=== PATIENT | female | born 1955 | race Caucasian/White ===

== ENCOUNTER → 2017-06-29 | Outpatient (CLI) | payer BC ==
[2017-06-29 10:12] LABS: Basophils # (A) 0.1 k/uL (0-0.2); Basophils % (A) 1 %; CH 34.2; CHCM 34.2; Eosinophils # (A) 0.1 k/uL (0-0.7); Eosinophils % (A) 1 %; HCT 46.2 % (34.0-46.0); HDW 2.51; HGB 15.7 gm/dL (11.4-16.0); Luc # (Auto) 0.16; Luc % (Auto) 2; Lymphocytes # (A) 1.7 k/uL (1.0-4.8); Lymphocytes % (A) 22 %; MCH 34.2 pg (25.0-35.0); MCV 100.6 fL (80.0-100.0); Monocytes # (A) 0.4 k/uL (0-1.0); Monocytes % (A) 5 %; Neutrophils # (A) 5.4 k/uL (1.3-7.7); Neutrophils % (A) 69 %; RDW 13.1 % (11.5-15.5); WBC 7.9 k/uL (3.8-10.6); WBC (Perox) 8.19
[2017-06-29 10:20] LABS: ALT 17 U/L (9-52); AST 17 U/L (14-36); Anion Gap 10 mmol/L; Blood Urea Nitrogen 15 mg/dL (7-17); Calcium 9.4 mg/dL (8.4-10.2); Carbon Dioxide 25 mmol/L (22-30); Chloride 105 mmol/L (98-107); Glucose 84 mg/dL (74-99); Non-African American GFR(MDRD) >60 (>60 ml/min/1.73 sqM); Potassium 4.5 mmol/L (3.5-5.1); Sodium 140 mmol/L (137-145)
== END | disposition home or self-care (01) ==
LOC: LABWHC1 09:38
PROVIDERS: ATTEND Nurse Practitioner Family
DX: L40.0 Psoriasis vulgaris (principal)
CPT/HCPCS: 36415; 80048; 84450; 84460; 85025

== ENCOUNTER → 2018-03-15 | Outpatient (CLI) | payer BC ==
--- NOTE | 2018-03-16 11:20 | BD ---
EXAMINATION TYPE: Axial Bone Density DATE OF EXAM: 03/15/2018 COMPARISON: NONE CLINICAL HISTORY: Osteoporosis screening Height: 63 inches Weight: 195 FRAX RISK QUESTIONS: Alcohol (3 or more units per day): no Family History (Parent hip fracture): no Glucocorticoids (More than 3mos): cream for psoriasis (Ex: prednisone, prednisolone, methylprednisolone, dexamethasone, and hydrocortisone). History of Fracture in Adulthood: clavicle Secondary Osteoporosis: 1. Type 1 Diabetes: no 2. Hyperthyroidism: no 3. Menopause before 45: no 4. Malnutrition: no 5. Chronic liver disease: no Rheumatoid Arthritis: no Current Tobacco Use: no RISK FACTORS HISTORY OF: Family History of Osteoporosis: no Active: yes Diet low in dairy products/other sources of calcium: no Postmenopausal woman: yes Take estrogen and/or progesterone medications: no Lost more than 2 inches in height since high school: no Frequent falls: no Poor Health: no Hyperparathyroidism: no Adrenal Insufficiency: no MEDICATIONS: Prednisone or other steroids: yes topical, for psoriasis How Long: about 5 years Thyroid Medications: no Osteoporosis Medications: no Additional Medications: oral diabetic meds, blood pressure meds, cholesterol meds Additional History: type II diabetic; arthritis EXAM MEASUREMENTS: Bone mineral densitometry was performed using the [employer] System. Bone mineral density as measured about the Lumbar spine is: ----- L1-L4(G/cm2): 1.339 T Score Values are as follows: ----- L2: 1.3 ----- L3: 1.7 ----- L4: 1.4 ----- L1-L4: 1.3 Bone mineral density not previously done at this facility; previously done at office of physician Bone mineral density about the R hip (g/cm2): 0.768 Bone mineral density about the L hip (g/cm2): 0.795 T Score values are as follows: -----R Neck: -1.9 -----L Neck: -1.7 -----R Total: -0.9 -----L Total: -0.6 Bone mineral density not previously done at this facility; previously done at office of physician IMPRESSION: Osteopenia (T Score between -2.5 and -1). There is slightly increased risk of fracture and the patient may be considered for treatment. Re-Screen 2-5 years. NOTE: T-SCORE=SD OF THE YOUNG ADULT MEAN.
--- NOTE | 2018-03-17 08:51 | MM ---
Reason for exam: screening (asymptomatic). Last mammogram was performed 1 year and 6 months ago. History: Patient is postmenopausal. Family history of breast cancer in maternal aunt. Physical Findings: A clinical breast exam by your physician is recommended on an annual basis and results should be correlated with mammographic findings. MG 3D Screening Mammo W/Cad Bilateral CC and MLO view(s) were taken. Prior study comparison: September 16, 2016, bilateral MG screening mammo w CAD. August 27, 2014, bilateral MG screening mammo w CAD. There are scattered fibroglandular densities. ASSESSMENT: Benign, BI-RAD 2 RECOMMENDATION: Routine screening mammogram of both breasts in 1 year.
== END | disposition home or self-care (01) ==
LOC: RADMAMWWP 08:50
PROVIDERS: ATTEND Obstetrics & Gynecology
DX: Z12.31 Encounter for screening mammogram for malignant neoplasm of breast (principal); Z80.3 Family history of malignant neoplasm of breast; M85.80 Other specified disorders of bone density and structure, unspecified site
CPT/HCPCS: 77063; 77067; 77080

== ENCOUNTER → 2018-06-22 | Outpatient (CLI) | payer BC ==
[2018-06-22 10:06] LABS: HCT 44.6 % (34.0-46.0); HGB 14.7 gm/dL (11.4-16.0); MCV 99.8 fL (80.0-100.0); RBC 4.47 m/uL (3.80-5.40); WBC 6.7 k/uL (3.8-10.6)
[2018-06-22 10:07] LABS: Basophils # (A) 0.1 k/uL (0-0.2); Basophils % (A) 1 %; Eosinophils # (A) 0.1 k/uL (0-0.7); Eosinophils % (A) 2 %; Lymphocytes # (A) 1.5 k/uL (1.0-4.8); Lymphocytes % (A) 22 %; MCH 32.9 pg (25.0-35.0); MCHC 32.9 g/dL (31.0-37.0); Mean Platelet Volume 8.3; Monocytes # (A) 0.3 k/uL (0-1.0); Monocytes % (A) 5 %; Neutrophils # (A) 4.6 k/uL (1.3-7.7); Neutrophils % (A) 68 %; Platelet Count 224 k/uL (150-450); RDW 13.6 % (11.5-15.5)
[2018-06-22 10:23] LABS: ALT 22 U/L (9-52); AST 22 U/L (14-36); Anion Gap 7 mmol/L; Blood Urea Nitrogen 22 mg/dL (7-17); Carbon Dioxide 26 mmol/L (22-30); Chloride 104 mmol/L (98-107); Potassium 4.7 mmol/L (3.5-5.1); Sodium 137 mmol/L (137-145)
[2018-06-22 19:50] LABS: Hemoglobin A1C 9.1 % (4.0-6.0)
== END | disposition home or self-care (01) ==
LOC: LABWHC1 09:10
PROVIDERS: ATTEND Nurse Practitioner Family
DX: L40.0 Psoriasis vulgaris (principal); E11.9 Type 2 diabetes mellitus without complications
CPT/HCPCS: 36415; 80051; 82565; 83036; 84450; 84460; 84520; 85025

== ENCOUNTER → 2018-12-19 | Outpatient (CLI) | payer BC ==
[2018-12-19 21:15] LABS: Hemoglobin A1C 11.1 % (4.0-6.0)
== END | disposition home or self-care (01) ==
LOC: LABWHC1 11:14
PROVIDERS: ATTEND Internal Medicine
DX: E11.9 Type 2 diabetes mellitus without complications (principal)
CPT/HCPCS: 36415; 83036

== ENCOUNTER → 2020-02-21 | Outpatient (CLI) | payer MEDICARE ==
[2020-02-21 09:42] LABS: Basophils # (A) 0.1 k/uL (0-0.2); Basophils % (A) 1 %; Eosinophils # (A) 0.1 k/uL (0-0.7); Eosinophils % (A) 2 %; HCT 46.4 % (34.0-46.0); HGB 14.8 gm/dL (11.4-16.0); Lymphocytes # (A) 1.5 k/uL (1.0-4.8); Lymphocytes % (A) 26 %; MCH 33.7 pg (25.0-35.0); MCV 105.4 fL (80.0-100.0); Macrocytosis Slight; Monocytes # (A) 0.3 k/uL (0-1.0); Monocytes % (A) 6 %; Neutrophils # (A) 3.7 k/uL (1.3-7.7); Neutrophils % (A) 64 %; Platelet Count 196 k/uL (150-450); RDW 12.6 % (11.5-15.5); WBC 5.8 k/uL (3.8-10.6)
[2020-02-21 17:13] LABS: African American GFR (CKD) 104.6 (60.0-200.0); Albumin/Globulin Ratio 1.82 (1.60-3.17); Anion Gap 7.2 mmol/L (4.00-12.00); Calcium 9.3 mg/dL (8.7-10.3); Carbon Dioxide 30.8 mmol/L (21.6-31.8); Chol/HDL Ratio 4.78; Globulin 2.2 g/dL (1.6-3.3); LDL Cholesterol,Calculated 119.4 mg/dL (0.0-131.0); Non-African American GFR(CKD) 90.3 (60.0-200.0); Potassium 4.7 mmol/L (3.5-5.5); Total Bilirubin 0.3 mg/dL (0.2-1.2); Total Protein 6.2 g/dL (6.2-8.2); VLDL Calculation 69.6 mg/dL (5.00-40.00)
[2020-02-21 17:52] LABS: Hepatitis B Surface AB- Quant 3.5 mIU/mL; Hepatitis B Surface Antibody Non-Reactive (Non-Reactive); Hepatitis C IgG Antibody Non-Reactive (Non-Reactive)
[2020-02-21 18:50] LABS: Hemoglobin A1C 7.1 % (4.0-6.0)
== END | disposition home or self-care (01) ==
LOC: LABWHC1 09:14
PROVIDERS: ATTEND Nurse Practitioner Family
DX: E11.9 Type 2 diabetes mellitus without complications (principal); E78.5 Hyperlipidemia, unspecified; L40.0 Psoriasis vulgaris
CPT/HCPCS: 36415; 80053; 80061; 83036; 85025; 86480; 86706; 86803

== ENCOUNTER → 2020-03-25 | Outpatient (CLI) | payer MEDICARE ==
[2020-03-25 14:45] VITALS: BP 131/70; PULSE 75; RESP 20; TEMP 98.2
--- NOTE | 2020-03-25 15:50 | P.HPOB ---
History of Present Illness H&P Date: 03/25/20 Chief Complaint: The patient is here for her routine gynecologic exam and ma mmogram. This is a 64-year-old with an LMP of 2003. The patient is here to establish with this office. She states it is been about 1-1/2 years since she her last pelvic exam. She is complaining of some vulvar pruritus. She wonders if she has a yeast infection. She denies any vaginal discharge. She has used a clotrimazole with betamethasone cream as needed in the past. She is otherwise without complaints and denies any postmenopausal bleeding. Review of Systems She has gained about 10 pounds over the last year.. She denies respiratory, cardiac and G.I. problems. She denies maltreatment or problems with falling. : she denies any significant problems with urinary leakage, but occasionally has to get to the bathroom right away. This has improved with oxybutynin. Past Medical History Past Medical History: Diabetes Mellitus, Neurologic Disorder, Skin Disorder Additional Past Medical History / Comment(s): Type 2 diabetes, psoriasis, tremors(possibly Parkinsons), and overactive bladder. 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 History of Any Multi-Drug Resistant Organisms: None Reported Past Surgical History: Adenoidectomy, Appendectomy, Cholecystectomy, Orthopedic Surgery, Tonsillectomy Additional Past Surgical History / Comment(s): Carpal tunnel surgery. Colonoscopy 2013(next after 10yr). 3 vaginal deliveries. Past Psychological History: Anxiety, Depression Smoking Status: Never smoker Past Alcohol Use History: Rare Additional Past Alcohol Use History / Comment(s): One per month. Past Drug Use History: None Reported Additional History: She has been since 1973 and is retired. - Past Family History Mother Family Medical History: Diabetes Mellitus Additional Family Medical History / Comment(s): Maternal aunt had breast cancer. Father Family Medical History: Cancer Additional Family Medical History / Comment(s): Lymphoma Medications and Allergies Home Medications Medication Instructions Recorded Confirmed Type Carbidopa 25 mg PO TID 03/25/20 03/25/20 History Clotrimazole/Betameth Cream 1 applic TOPICAL BID 03/25/20 03/25/20 History [Lotrisone] Dapagliflozin Propanediol [Farxiga] 10 mg PO DAILY 03/25/20 03/25/20 History Folic Acid 0.4 mg PO DAILY 03/25/20 03/25/20 History Liraglutide [Victoza 2-Loco] 1.8 mg SQ DAILY 03/25/20 03/25/20 History Oxybutynin Chloride [Oxybutynin 10 mg PO BID 03/25/20 03/25/20 History Chloride ER] Pioglitazone [Actos] 30 mg PO DAILY 03/25/20 03/25/20 History Primidone [Mysoline] 125 mg PO BID 03/25/20 03/25/20 History Propranolol [Inderal] 10 mg PO BID 03/25/20 03/25/20 History glipiZIDE [Glucotrol] 20 mg PO AC-BID 03/25/20 03/25/20 History Allergies Allergy/AdvReac Type Severity Reaction Status Date / Time amoxicillin Allergy Rash/Hives Unverified 03/25/20 14:45 Exam Vital Signs Temp Pulse Resp BP Pulse Ox 03/25/20 14:41 98.2 F 75 20 131/70 99 Intake and Output 03/25/20 03/25/20 03/25/20 06:59 14:59 22:59 Other: Weight 94.347 kg Height 5 feet 3 inches, weight 208 pounds, BMI 36.8. This is a well-developed well-nourished white female who is alert and oriented times 3 in no acute distress. HEENT: Within normal limits. NECK: Supple without mass or thyromegaly. CHEST AND LUNGS: Clear to auscultation. HEART: Regular rate and rhythm. BREASTS: Are without mass or discharge. AXILLARY EXAM: Negative for adenopathy. BACK: Negative for CVA tenderness. ABDOMEN: Soft, nontender, without palpable masses. PELVIC EXAM: external genitalia with mild atrophy and mild generalized erythem. and no focal lesions. Cervix and vagina appear normal with mild atrophy. There is no unusual discharge. There is no evidence of prolapse. The uterus is midposition, nongravid size and nontender. There are no palpable adnexal masses or tenderness. RECTAL EXAM: Rectovaginal exam is negative for mass or tenderness and is negative for occult blood. EXTREMITIES: Nontender. IMPRESSION: 1. 64-year-old menopausal female with intermittent vulvar pruritus and current vulvitis. No vaginal evidence of Christa vaginitis. 2. history of osteopenia. PLAN: 1. Pap smear was performed. Currently I have no record of her previous Pap smears. We will obtain the last 10 years of Pap smears from Dr. Gillespie's office. She has signed a records release for this. 2. Self breast awareness was discussed with the patient. 3. Screening mammogram will be done today. 4. Kenalog 0.1% cream twice a day when necessary for vulvar pruritus. The electronic prescription will be sent to [facility] pharmacy on . 5. Affirm testing was obtained from the vagina for Christa, BV, and trichomonas testing. 6.Osteoporosis prevention was discussed. I have stressed the importance of adequate calcium, vitamin D and regular exercise. Recommended amounts of calcium and vitamin D were also discussed. Bone density testing was done on 03/15/2018 showing osteopenia. We will plan on repeating bone density testing at her next annual examination. 7. She was advised to return in one year for her annual well woman exam.
--- NOTE | 2020-03-27 08:17 | MM ---
Reason for exam: screening (asymptomatic). Last mammogram was performed 2 years ago. History: Patient is postmenopausal. Family history of breast cancer in maternal aunt. Physical Findings: A clinical breast exam by your physician is recommended on an annual basis and results should be correlated with mammographic findings. MG 3D Screening Mammo W/Cad Bilateral CC and MLO view(s) were taken. Prior study comparison: March 15, 2018, bilateral MG 3d screening mammo w/cad. September 16, 2016, bilateral MG screening mammo w CAD. The breast tissue is heterogeneously dense. This may lower the sensitivity of mammography. No significant changes when compared with prior studies. ASSESSMENT: Benign, BI-RAD 2 RECOMMENDATION: Routine screening mammogram of both breasts in 1 year.
--- NOTE | 2020-03-27 15:31 | P.PN ---
Progress Note - Text Progress Note Date: 03/27/20 I have called the patient to notify her of the Affirm testing which was negative for nicolasa, gardnarella and trichomonas. She is to use the Kenalog cream as directed.
--- NOTE | 2020-04-08 11:35 | P.PN ---
Progress Note - Text Progress Note Date: 04/08/20 OUTPATIENT FOLLOW-UP NOTE TEST(S)/RESULTS: Test results from 03/25/2020 include negative Pap smear and benign mammogram. METHOD OF NOTIFICATION: The patient was notified by phone. PATIENT COMMENTS: The patient is happy to hear these results. DIAGNOSIS: Negative Pap smear and benign mammogram. DISCUSSION: I have obtained records from [facility] regarding her previous Pap smears. Records were obtained showing negative Pap smears every 1- 2 years between 2008 and 2017 and all were negative. Her last Pap smear on 02/20/2018 was also negative with negative high-risk HPV testing. PLAN: Since she is considered low risk for cervical problems and greater than 65, we will discontinue Pap smears. The patient was advised to return in 1-2 years for her well woman examination.
== END | disposition home or self-care (01) ==
LOC: WWCWWP 14:34
PROVIDERS: ATTEND Obstetrics & Gynecology
DX: Z12.31 Encounter for screening mammogram for malignant neoplasm of breast (principal)
CPT/HCPCS: 77063; 77067

== ENCOUNTER → 2020-10-06 | Outpatient (CLI) | payer MEDICARE ==
[2020-10-06 11:50] LABS: Basophils # (A) 0.1 k/uL (0-0.2); Basophils % (A) 1 %; Eosinophils # (A) 0.1 k/uL (0-0.7); Eosinophils % (A) 2 %; HCT 47.2 % (34.0-46.0); HGB 15.5 gm/dL (11.4-16.0); Lymphocytes # (A) 1.4 k/uL (1.0-4.8); Lymphocytes % (A) 20 %; MCH 33.3 pg (25.0-35.0); MCHC 32.7 g/dL (31.0-37.0); MCV 101.7 fL (80.0-100.0); Mean Platelet Volume 9.2; Monocytes # (A) 0.4 k/uL (0-1.0); Monocytes % (A) 6 %; Neutrophils # (A) 4.6 k/uL (1.3-7.7); Neutrophils % (A) 69 %; Platelet Count 204 k/uL (150-450); RBC 4.64 m/uL (3.80-5.40); RDW 12.1 % (11.5-15.5); WBC 6.6 k/uL (3.8-10.6)
[2020-10-06 20:59] LABS: ALT <8 U/L (8-44); AST 19 U/L (13-35); Albumin/Globulin Ratio 1.91 (1.60-3.17); Alkaline Phosphatase 65 U/L (41-126); Calcium 9.5 mg/dL (8.7-10.3); Carbon Dioxide 30.1 mmol/L (21.6-31.8); Chloride 103 mmol/L (96-109); Globulin 2.2 g/dL (1.6-3.3); Glucose 168 mg/dL (70-110); Non-African American GFR(CKD) 76.8 (60.0-200.0); Potassium 4.8 mmol/L (3.5-5.5); Sodium 139 mmol/L (135-145); Total Bilirubin 0.5 mg/dL (0.2-1.2); Total Protein 6.4 g/dL (6.2-8.2)
== END | disposition home or self-care (01) ==
LOC: LABWHC1 10:41
PROVIDERS: ATTEND Dermatology
DX: L40.0 Psoriasis vulgaris (principal); L30.4 Erythema intertrigo
CPT/HCPCS: 36415; 80053; 85025

== ENCOUNTER → 2021-09-30 | Outpatient (CLI) | payer MEDICARE ==
[2021-10-01 00:54] LABS: Hepatitis B Surface Antigen Nonreactive (Nonreactive)
== END | disposition home or self-care (01) ==
LOC: LABWHC1 14:28
PROVIDERS: ATTEND Nurse Practitioner Family
DX: K52.9 Noninfective gastroenteritis and colitis, unspecified (principal)
CPT/HCPCS: 36415; 83993; 86704; 87324; 87340

== ENCOUNTER → 2021-10-20 | Outpatient (CLI) | payer MEDICARE ==
[2021-10-20 11:05] VITALS: BP 106/66; PULSE 68; RESP 18; TEMP 97.4
--- NOTE | 2021-10-20 11:36 | P.HPOB ---
History of Present Illness H&P Date: 10/20/21 Chief Complaint: The patient is here for her routine gynecologic exam and ma mmogram. This is a 65-year-old with an LMP of 2003. The patient is without gynecologic complaints. Review of Systems The patient has lost 54 pounds over the last year. She was recently diagnosed with Crohn's disease and had been having significant diarrhea, but this has improved with treatment. Her weight loss was related to the Crohn's disease symptoms. She denies respiratory, cardiac, or G.I. problems. Past Medical History Past Medical History: Diabetes Mellitus, Neurologic Disorder, Skin Disorder Additional Past Medical History / Comment(s): Type 2 diabetes, Crohn's disease, psoriasis, tremors(possibly Parkinsons), and overactive bladder. 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 History of Any Multi-Drug Resistant Organisms: None Reported Past Surgical History: Adenoidectomy, Appendectomy, Cholecystectomy, Orthopedic Surgery, Tonsillectomy Additional Past Surgical History / Comment(s): Carpal tunnel surgery. Colonoscopy with upper endoscopy 2020. 3 vaginal deliveries. Past Psychological History: Anxiety, Depression Smoking Status: Never smoker Past Alcohol Use History: Rare (0-1 month) Past Drug Use History: None Reported Additional History: She has been since 1973 and is retired. She is infrequently sexually active. - Past Family History Mother Family Medical History: Diabetes Mellitus Additional Family Medical History / Comment(s): Maternal aunt had breast cancer. Father Family Medical History: Cancer Additional Family Medical History / Comment(s): Lymphoma Medications and Allergies Home Medications Medication Instructions Recorded Confirmed Type Carbidopa 25 mg PO TID 03/25/20 10/20/21 History Liraglutide [Victoza 2-Loco] 1.8 mg SQ DAILY 03/25/20 10/20/21 History Oxybutynin Chloride [Oxybutynin 10 mg PO BID 03/25/20 10/20/21 History Chloride ER] Pioglitazone [Actos] 30 mg PO DAILY 03/25/20 10/20/21 History Primidone [Mysoline] 125 mg PO BID 03/25/20 10/20/21 History Propranolol [Inderal] 10 mg PO BID 03/25/20 10/20/21 History Triamcinolone 0.1% Cream [Kenalog 1 applicatio TOPICAL BID PRN #80 03/25/20 10/20/21 Rx 0.1% Cream] gram glipiZIDE [Glucotrol] 20 mg PO AC-BID 03/25/20 10/20/21 History Mesalamine 800 mg PO TID 10/20/21 10/20/21 History predniSONE 5 mg PO DAILY 10/20/21 10/20/21 History Allergies Allergy/AdvReac Type Severity Reaction Status Date / Time amoxicillin Allergy Rash/Hives Unverified 10/20/21 10:59 clindamycin Allergy Unknown Unverified 10/20/21 10:59 Exam Vital Signs Temp Pulse Resp BP Pulse Ox 10/20/21 11:02 97.4 F L 68 18 106/66 100 Intake and Output 10/19/21 10/20/21 10/20/21 22:59 06:59 14:59 Other: Weight 69.853 kg Height 5 feet 3 inches, weight 154 pounds, BMI 27.3. This is a well-developed well-nourished white female who is alert and oriented t imes 3 in no acute distress. HEENT: Within normal limits. NECK: Supple without mass or thyromegaly. CHEST AND LUNGS: Clear to auscultation. HEART: Regular rate and rhythm. BREASTS: Are without mass or discharge. AXILLARY EXAM: Negative for adenopathy. BACK: Negative for CVA tenderness. ABDOMEN: Soft, nontender, without palpable masses. PELVIC EXAM: Normal external genitalia with mild to moderate atrophy. Cervix and vagina appear normal with mild to moderate atrophy. There is no unusual discharge. There is no evidence of prolapse. The uterus is midposition, nongravid size and nontender. There are no palpable adnexal masses or tenderness. RECTAL EXAM: Rectovaginal exam is negative for mass or tenderness and is negative for occult blood. EXTREMITIES: Nontender. IMPRESSION: 1. 65-year-old menopausal female with normal gynecologic exam. 2. History of osteopenia. PLAN: 1. Pap smears have been discontinued. 2. Self breast awareness was discussed with the patient. We have also discu ssed symptoms associated with inflammatory breast cancer. 3. Screening mammogram will be done today. 4. Osteoporosis prevention was discussed. I have stressed the importance of adequate calcium, vitamin D and regular exercise. Recommended amounts of calcium and vitamin D were also discussed. I have recommended repeating bone density testing since her last one was done in 2018. The order slip was given to the patient for this. 5. She has completed her Covid vaccination series and has received a booster. 6. The patient was advised to return in 1-2 years for her well woman examination.
--- NOTE | 2021-10-21 09:43 | MM ---
Reason for exam: screening (asymptomatic). Last mammogram was performed 1 year and 7 months ago. History: Patient is postmenopausal. Family history of breast cancer in 2 cousins and breast cancer in maternal aunt. Physical Findings: A clinical breast exam by your physician is recommended on an annual basis and results should be correlated with mammographic findings. MG 3D Screening Mammo W/Cad Bilateral CC and MLO view(s) were taken. Prior study comparison: March 25, 2020, bilateral MG 3d screening mammo w/cad. March 15, 2018, bilateral MG 3d screening mammo w/cad. There are scattered fibroglandular densities. No significant changes when compared with prior studies. ASSESSMENT: Benign, BI-RAD 2 RECOMMENDATION: Routine screening mammogram of both breasts in 1 year.
== END ==
LOC: WWCWWP 10:37
PROVIDERS: ATTEND Obstetrics & Gynecology
DX: Z12.31 Encounter for screening mammogram for malignant neoplasm of breast (principal); E11.9 Type 2 diabetes mellitus without complications; F41.9 Anxiety disorder, unspecified; F32.A Depression, unspecified; Z87.39 Personal history of other diseases of the musculoskeletal system and connective tissue; Z79.84 Long term (current) use of oral hypoglycemic drugs; Z88.1 Allergy status to other antibiotic agents
CPT/HCPCS: 77063; 77067

== ENCOUNTER 2021-12-25 10:42 | Observation (INO) | payer MEDICARE ==
[2021-12-25] MEDS ORDERED: SODIUM CHLORIDE 0.9% 500 ML 500 ML IV STA (11:37)
--- NOTE | 2021-12-25 11:50 | ED ---
General Adult HPI - General Chief complaint: Altered Mental Status Stated complaint: AMS Time Seen by Provider: 12/25/21 11:04 Source: family Mode of arrival: ambulatory Limitations: no limitations - History of Present Illness Initial comments: This 66-year-old female with a past medical history of diabetes mellitus, Crohn's disease and psoriasis presents to the emergency department with altered mental status that began last night at 8:00 PM. Has been in room states they were watching TV around 8:00 last night when patient began having trouble work ing the TV remote, which patient has never had trouble doing in her past. states he suggested they just go to bed and thought she was just tired at the time. Patient was not having any difficulty speaking or walking at this time and has been thought she was just tired. states patient slept through the night and woke up this morning around 5 AM taught her cat out before going back to bed for another 1-2 hours. states since waking up this morning his has had increased weakness, increase tiredness-falling asleep while just sitting in her chair, and difficulty speaking. denies any one-sided weakness. states that patient was recently taken off of her insulin due to her blood sugars dropping, however he states last night was 97 when she took her sugars, he is unsure what time it was that she took it and states he believes it was a couple hours prior to when her altered mental status began. denies any recent falls, patient complaining of any headache, lightheadedness, dizziness, chest pain, shortness of breath, abdominal pain, change in bowel or bladder. denies patient having any strokes in her past. Patient does take glipizide for diabetes. - Related Data Home Medications Medication Instructions Recorded Confirmed Pioglitazone [Actos] 30 mg PO DAILY 03/25/20 12/25/21 Primidone [Mysoline] 75 mg PO BID 03/25/20 12/25/21 Propranolol [Inderal] 10 mg PO BID 03/25/20 12/25/21 glipiZIDE [Glucotrol] 20 mg PO AC-BID 03/25/20 12/25/21 Mesalamine 1,600 mg PO TID 10/20/21 12/25/21 Baclofen [Lioresal] 10 mg PO BID 12/25/21 12/25/21 Carbidopa-Levodopa 25-100 mg 1 tab PO TID 12/25/21 12/25/21 [Sinemet 25-100] Folic Acid 0.4 mg PO SUMOTUWETHSA 12/25/21 12/25/21 Oxybutynin Chloride [Ditropan] 5 mg PO BID 12/25/21 12/25/21 PARoxetine [Paxil] 20 mg PO HS 12/25/21 12/25/21 Risankizumab-Rzaa [Skyrizi] 75 mg SQ Q90D 12/25/21 12/25/21 predniSONE 40 mg PO DAILY 12/25/21 12/25/21 rOPINIRole HCL [Requip] 1 mg PO TID-W/MEALS 12/25/21 12/25/21 Allergies Allergy/AdvReac Type Severity Reaction Status Date / Time amoxicillin Allergy Rash/Hives Verified 12/25/21 13:08 clindamycin Allergy Unknown Verified 12/25/21 13:08 Review of Systems ROS Statement: Those systems with pertinent positive or pertinent negative responses have been documented in the HPI. ROS Other: All systems not noted in ROS Statement are negative. Past Medical History Past Medical History: Diabetes Mellitus, Neurologic Disorder, Skin Disorder Additional Past Medical History / Comment(s): Type 2 diabetes, Crohn's disease, psoriasis, tremors(possibly Parkinsons), and overactive bladder. 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 History of Any Multi-Drug Resistant Organisms: None Reported Past Surgical History: Adenoidectomy, Appendectomy, Cholecystectomy, Orthopedic Surgery, Tonsillectomy Additional Past Surgical History / Comment(s): Carpal tunnel surgery. Colonoscopy with upper endoscopy 2020. 3 vaginal deliveries. Past Psychological History: Anxiety, Depression Smoking Status: Never smoker Past Alcohol Use History: Rare Past Drug Use History: None Reported - Past Family History Mother Family Medical History: Diabetes Mellitus Additional Family Medical History / Comment(s): Maternal aunt had breast cancer. Father Family Medical History: Cancer Additional Family Medical History / Comment(s): Lymphoma General Exam Limitations: no limitations, altered mental status General appearance: alert, other (Physical exam completed to the best my ability, however patient did keep falling asleep and when asked her to speak she would only continuously repeat their cell phone number.) Head exam: Present: atraumatic, normocephalic, normal inspection Eye exam: Present: normal appearance, PERRL, EOMI. Absent: scleral icterus, conjunctival injection, periorbital swelling Pupils: Present: normal accommodation ENT exam: Present: normal exam, normal oropharynx, mucous membranes moist, other (No facial drooping or deviation of tongue) Neck exam: Present: normal inspection. Absent: tenderness, meningismus, lymphadenopathy Respiratory exam: Present: normal lung sounds bilaterally. Absent: respiratory distress, wheezes, rales, rhonchi, stridor, chest wall tenderness Cardiovascular Exam: Present: regular rate, normal rhythm, normal heart sounds. Absent: bradycardia, tachycardia, irregular rhythm, systolic murmur, diastolic murmur, rubs, gallop, clicks GI/Abdominal exam: Present: soft, normal bowel sounds. Absent: distended, tenderness, guarding, rebound, rigid Extremities exam: Present: normal inspection, full ROM, normal capillary refill. Absent: tenderness, pedal edema, joint swelling, calf tenderness Back exam: Present: normal inspection. Absent: CVA tenderness (R), CVA tenderness (L), paraspinal tenderness, vertebral tenderness Neurological exam: Present: alert, CN II-XII intact (Patient unable to perform finger to nose, unable to follow 6 cardinal signs of gaze. Unable to perform rapid alternating movements. When I raise bilateral arms patient does drop in both. When I raise bilateral legs, patient does drop in both follow commands of raising arms/legs), motor sensory deficit (Patient unable to tell me if she feels me touching her cheeks, arms, hands, legs, feet.). Absent: oriented X3 (Patient unable to say her name, where she is at, the date, the color of her shirt. Patient repeatedly stating her phone number) Psychiatric exam: Present: flat affect Skin exam: Present: warm, dry, intact, normal color. Absent: rash Course Vital Signs 12/25/21 12/25/21 12/25/21 10:44 11:53 14:26 Temperature 98.8 F 97.5 F L Pulse Rate 66 66 66 Respiratory 20 16 16 Rate Blood Pressure 106/76 158/73 158/73 O2 Sat by Pulse 98 96 99 Oximetry 12/25/21 16:32 Temperature Pulse Rate 80 Respiratory 18 Rate Blood Pressure 95/60 O2 Sat by Pulse 98 Oximetry - Reevaluation(s) Reevaluation #1: 12/25/21 12:50 Patient is awake and alert, however she is still not responding appropriately to questions. NIH score is difficult to assess due to patient not responding to questions or commands. Patient was awake and alert in bed, however she did not follow any commands I requested. When asked age and month patient stated her cell phone number. Patient was able to squeeze my hands and blink her eyes. Patient was unable to perform 6 cardinal signs of gaze. Patient without any facial palsy or paralysis. When I raised patient's arms up and asked her to keep them in the air patient just got onto the floor, same with bilateral legs. Patient was unable to respond when I asked her about sensory questions if she could feel me touching her bilateral temples, cheeks, shoulders, arms, hands, abdomen, legs, knees, toes. Patient without any slurring of her speech when she repeatedly states her phone number. 12/25/21 13:00 Dextrose given due to glucose being 38. Patient immediately began to be more awake and alert. 12/25/21 13:15 Patient awake alert and oriented 4. Patient able to perform [id number], rapid alternating movements, 6 cardinal signs of gaze. Patient without any arm drift or leg drift. Patient able to push and pull against resistance with bilateral upper and lower extremities. Patient without any dysarthria or difficulty speaking. 12/25/21 13:52 On reevaluation, patient is AAOx4. Patient is neurologically intact. All patient's symptoms are likely from hypoglycemia. I did speak to Kathryn Chang to discuss impression. CT results stated "a small acute or hyperacute infarct can't be excluded by the computed tomography scan." However, he states he puts this on all CT scans when he does not see any acute infarct reading. He did state he did not see any signs or infarct present. NIH score 0 EKG Findings - EKG Comments: EKG Findings:: EKG: Ventricular rate 64. TX interval 129. Bahai 104. QT/QTc 407/417 Medical Decision Making - Medical Decision Making This 66-year-old female presents to the emergency Department with altered mental status that began last night. Patient was diagnosed with Crohn's disease about a year ago and has lost 50 pounds since. Labs did reveal glucose of 38. After dextrose given, patient was AAO4. Computed tomography scan without any acute findings. Chest x-ray with hyperinflation compatible with COPD. Cardiomegaly with pulmonary venous congestion. No evidence for overt failure at this time. I did speak with who agreed to accept patient to their services. Instructed me to place patient on D5. Due to patient's fluctuating glucose levels, patient will be kept in observation for 24 hours for further workup and treatment. I did discuss patient and case throughout the patient stay with my attending, . - Lab Data Result diagrams: 12/25/21 12:10 12/25/21 12:10 Lab Results 12/25/21 12/25/21 12/25/21 Range/Units 12:10 12:10 12:10 WBC 7.8 (3.8-10.6) k/uL RBC 4.38 (3.80-5.40) m/uL Hgb 15.6 (11.4-16.0) gm/dL Hct 46.0 (34.0-46.0) % MCV 105.0 H (80.0-100.0) fL MCH 35.7 H (25.0-35.0) pg MCHC 34.0 (31.0-37.0) g/dL RDW 12.6 (11.5-15.5) % Plt Count 127 L (150-450) k/uL MPV 11.9 Neutrophils % 73 % Lymphocytes % 16 % Monocytes % 8 % Eosinophils % 0 % Basophils % 1 % Neutrophils # 5.7 (1.3-7.7) k/uL Lymphocytes # 1.2 (1.0-4.8) k/uL Monocytes # 0.6 (0-1.0) k/uL Eosinophils # 0.0 (0-0.7) k/uL Basophils # 0.0 (0-0.2) k/uL Manual Slide Review Performed Macrocytosis Slight PT 10.1 (9.0-12.0) sec INR 0.9 (<1.2) APTT 19.4 L (22.0-30.0) sec Sodium 137 (137-145) mmol/L Potassium 4.2 (3.5-5.1) mmol/L Chloride 105 (98-107) mmol/L Carbon Dioxide 29 (22-30) mmol/L Anion Gap 3 mmol/L BUN 26 H (7-17) mg/dL Creatinine 0.67 (0.52-1.04) mg/dL Est GFR (CKD-EPI)AfAm >90 (>60 ml/min/1.73 sqM) Est GFR (CKD-EPI)NonAf >90 (>60 ml/min/1.73 sqM) Glucose 38 L* (74-99) mg/dL POC Glucose (mg/dL) (75-99) mg/dL POC Glu Supervisor Residential ID Calcium 9.3 (8.4-10.2) mg/dL Total Bilirubin 0.4 (0.2-1.3) mg/dL AST 25 (14-36) U/L ALT 7 (4-34) U/L Alkaline Phosphatase 52 (38-126) U/L Ammonia (<30) umol/L Troponin I (0.000-0.034) ng/mL Total Protein 6.9 (6.3-8.2) g/dL Albumin 3.9 (3.5-5.0) g/dL Urine Color Urine Appearance (Clear) Urine pH (5.0-8.0) Ur Specific [place] (1.001-1.035) Urine Protein (Negative) Urine Glucose (UA) (Negative) Urine Ketones (Negative) Urine Blood (Negative) Urine Nitrite (Negative) Urine Bilirubin (Negative) Urine Urobilinogen (<2.0) mg/dL Ur Leukocyte Esterase (Negative) Urine Opiates Screen (NotDetected) Ur Oxycodone Screen (NotDetected) Urine Methadone Screen (NotDetected) Ur Propoxyphene Screen (NotDetected) Ur Barbiturates Screen (NotDetected) U Tricyclic Antidepress (NotDetected) Ur Phencyclidine Scrn (NotDetected) Ur Amphetamines Screen (NotDetected) U Methamphetamines Scrn (NotDetected) U Benzodiazepines Scrn (NotDetected) Urine Cocaine Screen (NotDetected) U Marijuana (THC) Screen (NotDetected) Serum Alcohol <10 mg/dL 12/25/21 12/25/21 12/25/21 Range/Units 12:10 12:10 13:22 WBC (3.8-10.6) k/uL RBC (3.80-5.40) m/uL Hgb (11.4-16.0) gm/dL Hct (34.0-46.0) % MCV (80.0-100.0) fL MCH (25.0-35.0) pg MCHC (31.0-37.0) g/dL RDW (11.5-15.5) % Plt Count (150-450) k/uL MPV Neutrophils % % Lymphocytes % % Monocytes % % Eosinophils % % Basophils % % Neutrophils # (1.3-7.7) k/uL Lymphocytes # (1.0-4.8) k/uL Monocytes # (0-1.0) k/uL Eosinophils # (0-0.7) k/uL Basophils # (0-0.2) k/uL Manual Slide Review Macrocytosis PT (9.0-12.0) sec INR (<1.2) APTT (22.0-30.0) sec Sodium (137-145) mmol/L Potassium (3.5-5.1) mmol/L Chloride (98-107) mmol/L Carbon Dioxide (22-30) mmol/L Anion Gap mmol/L BUN (7-17) mg/dL Creatinine (0.52-1.04) mg/dL Est GFR (CKD-EPI)AfAm (>60 ml/min/1.73 sqM) Est GFR (CKD-EPI)NonAf (>60 ml/min/1.73 sqM) Glucose (74-99) mg/dL POC Glucose (mg/dL) 127 H (75-99) mg/dL POC Glu Supervisor Residential ID Ophelia Blood Calcium (8.4-10.2) mg/dL Total Bilirubin (0.2-1.3) mg/dL AST (14-36) U/L ALT (4-34) U/L Alkaline Phosphatase (38-126) U/L Ammonia <9 (<30) umol/L Troponin I <0.012 (0.000-0.034) ng/mL Total Protein (6.3-8.2) g/dL Albumin (3.5-5.0) g/dL Urine Color Urine Appearance (Clear) Urine pH (5.0-8.0) Ur Specific [place] (1.001-1.035) Urine Protein (Negative) Urine Glucose (UA) (Negative) Urine Ketones (Negative) Urine Blood (Negative) Urine Nitrite (Negative) Urine Bilirubin (Negative) Urine Urobilinogen (<2.0) mg/dL Ur Leukocyte Esterase (Negative) Urine Opiates Screen (NotDetected) Ur Oxycodone Screen (NotDetected) Urine Methadone Screen (NotDetected) Ur Propoxyphene Screen (NotDetected) Ur Barbiturates Screen (NotDetected) U Tricyclic Antidepress (NotDetected) Ur Phencyclidine Scrn (NotDetected) Ur Amphetamines Screen (NotDetected) U Methamphetamines Scrn (NotDetected) U Benzodiazepines Scrn (NotDetected) Urine Cocaine Screen (NotDetected) U Marijuana (THC) Screen (NotDetected) Serum Alcohol mg/dL 12/25/21 12/25/21 12/25/21 Range/Units 14:02 14:25 14:53 WBC (3.8-10.6) k/uL RBC (3.80-5.40) m/uL Hgb (11.4-16.0) gm/dL Hct (34.0-46.0) % MCV (80.0-100.0) fL MCH (25.0-35.0) pg MCHC (31.0-37.0) g/dL RDW (11.5-15.5) % Plt Count (150-450) k/uL MPV Neutrophils % % Lymphocytes % % Monocytes % % Eosinophils % % Basophils % % Neutrophils # (1.3-7.7) k/uL Lymphocytes # (1.0-4.8) k/uL Monocytes # (0-1.0) k/uL Eosinophils # (0-0.7) k/uL Basophils # (0-0.2) k/uL Manual Slide Review Macrocytosis PT (9.0-12.0) sec INR (<1.2) APTT (22.0-30.0) sec Sodium (137-145) mmol/L Potassium (3.5-5.1) mmol/L Chloride (98-107) mmol/L Carbon Dioxide (22-30) mmol/L Anion Gap mmol/L BUN (7-17) mg/dL Creatinine (0.52-1.04) mg/dL Est GFR (CKD-EPI)AfAm (>60 ml/min/1.73 sqM) Est GFR (CKD-EPI)NonAf (>60 ml/min/1.73 sqM) Glucose (74-99) mg/dL POC Glucose (mg/dL) 92 68 L (75-99) mg/dL POC Glu Supervisor Residential ID Huang Bowers Taylor Calcium (8.4-10.2) mg/dL Total Bilirubin (0.2-1.3) mg/dL AST (14-36) U/L ALT (4-34) U/L Alkaline Phosphatase (38-126) U/L Ammonia (<30) umol/L Troponin I (0.000-0.034) ng/mL Total Protein (6.3-8.2) g/dL Albumin (3.5-5.0) g/dL Urine Color Yellow Urine Appearance Clear (Clear) Urine pH 6.5 (5.0-8.0) Ur Specific [place] 1.013 (1.001-1.035) Urine Protein Negative (Negative) Urine Glucose (UA) Trace H (Negative) Urine Ketones Negative (Negative) Urine Blood Negative (Negative) Urine Nitrite Negative (Negative) Urine Bilirubin Negative (Negative) Urine Urobilinogen <2.0 (<2.0) mg/dL Ur Leukocyte Esterase Negative (Negative) Urine Opiates Screen Not Detected (NotDetected) Ur Oxycodone Screen Not Detected (NotDetected) Urine Methadone Screen Not Detected (NotDetected) Ur Propoxyphene Screen Not Detected (NotDetected) Ur Barbiturates Screen Detected H (NotDetected) U Tricyclic Antidepress Not Detected (NotDetected) Ur Phencyclidine Scrn Not Detected (NotDetected) Ur Amphetamines Screen Not Detected (NotDetected) U Methamphetamines Scrn Not Detected (NotDetected) U Benzodiazepines Scrn Not Detected (NotDetected) Urine Cocaine Screen Not Detected (NotDetected) U Marijuana (THC) Screen Not Detected (NotDetected) Serum Alcohol mg/dL Disposition Clinical Impression: Hypoglycemia, Altered mental status Disposition: ADMITTED IP TO THIS [facility] Condition: Serious
[2021-12-25 12:37] LABS: ALT 7 U/L (4-34); AST 25 U/L (14-36); African American GFR (CKD) >90 (>60 ml/min/1.73 sqM); Albumin 3.9 g/dL (3.5-5.0); Alcohol <10 mg/dL; Alkaline Phosphatase 52 U/L (38-126); Anion Gap 3 mmol/L; Blood Urea Nitrogen 26 mg/dL (7-17); Calcium 9.3 mg/dL (8.4-10.2); Carbon Dioxide 29 mmol/L (22-30); Chloride 105 mmol/L (98-107); Non-African American GFR(CKD) >90 (>60 ml/min/1.73 sqM); Potassium 4.2 mmol/L (3.5-5.1); Sodium 137 mmol/L (137-145); Total Bilirubin 0.4 mg/dL (0.2-1.3); Total Protein 6.9 g/dL (6.3-8.2)
[2021-12-25 12:41] LABS: Glucose 38 mg/dL (74-99)
[2021-12-25] MEDS ORDERED: DEXTROSE 50% SYRINGE 50 ML IVP STA (12:55)
[2021-12-25 12:56] LABS: INR 0.9 (<1.2); Prothrombin Time 10.1 sec (9.0-12.0)
--- NOTE | 2021-12-25 12:59 | XR ---
EXAMINATION TYPE: XR chest 2V DATE OF EXAM: 12/25/2021 COMPARISON: NONE HISTORY: Shortness of breath TECHNIQUE: Frontal and lateral views of the chest are obtained. FINDINGS: Scattered senescent parenchymal changes noted. Hyperinflation compatible with COPD. Cardiomegaly with pulmonary venous congestion. No evidence for overt failure at this time. Mediastinal structures are stable and grossly unremarkable. No evidence for hilar prominence. Degenerative changes dorsal spine. IMPRESSION: 1. Cardiomegaly with pulmonary venous congestion. No evidence for overt failure at this time.
[2021-12-25 13:04] LABS: Partial Thromboplastin Time 19.4 sec (22.0-30.0)
[2021-12-25 13:12] LABS: Basophils % (A) 1 %; Eosinophils % (A) 0 %; HGB 15.6 gm/dL (11.4-16.0); Lymphocytes # (A) 1.2 k/uL (1.0-4.8); Lymphocytes % (A) 16 %; MCH 35.7 pg (25.0-35.0); Macrocytosis Slight; Mean Platelet Volume 11.9; Monocytes # (A) 0.6 k/uL (0-1.0); Monocytes % (A) 8 %; Neutrophils # (A) 5.7 k/uL (1.3-7.7); Neutrophils % (A) 73 %; RBC 4.38 m/uL (3.80-5.40); RDW 12.6 % (11.5-15.5); WBC 7.8 k/uL (3.8-10.6)
--- NOTE | 2021-12-25 13:12 | CT ---
EXAMINATION TYPE: CT brain wo con DATE OF EXAM: 12/25/2021 COMPARISON: None available HISTORY: Altered mental status. CT DLP: 1246.4 mGycm Automated exposure control for dose reduction was used. TECHNIQUE: CT scan of the brain is performed without IV contrast administration. FINDINGS: Scattered arterial atherosclerotic calcifications with a calcified plaque at the M1 segment of the le ft MCA. No acute intracranial hemorrhage. No gross acute cortical infarct. No midline shift, herniati on or ventriculomegaly. Unremarkable stahl-white matter differentiation, basal cisterns, sella and CP angles. No gross space-o ccupying lesion, vasogenic edema or mass effect. No gross orbital abnormality. Mucosal thickening of the right axillary sinus with previous sinus surg ishan. Opacified left posterior mastoid air cells. Osteopenia. No aggressive bone lesion. Fused occipit al condyles and C1. IMPRESSION: No acute intracranial abnormality or gross space-occupying lesion by this nonenhanced CT scan. A smal l acute or hyperacute infarct can't be excluded by this CT scan. Incidental findings as described abo ve.
[2021-12-25 13:24] LABS: Glucose,Whole Blood 127 mg/dL (75-99)
[2021-12-25 14:04] LABS: Glucose,Whole Blood 92 mg/dL (75-99)
[2021-12-25 14:23] LABS: Platelet Count 127 k/uL (150-450)
[2021-12-25 14:49] LABS: Appearance,Urine Clear (Clear); Bilirubin,Urine Negative (Negative); Blood,Urine Negative (Negative); Color,Urine Yellow; Glucose,Urine (UA) Trace (Negative); Ketones,Urine Negative (Negative); Leukocyte Esterase,Urine Negative (Negative); Nitrite,Urine Negative (Negative); PH, Urine 6.5 (5.0-8.0); Protein,Urine Negative (Negative); Specific Gravity,Urine 1.013 (1.001-1.035); Urobilinogen,Urine <2.0 mg/dL (<2.0)
[2021-12-25 14:55] LABS: Glucose,Whole Blood 68 mg/dL (75-99)
[2021-12-25] MEDS ORDERED: NALOXONE 0.4 MG/ML 1 ML VIAL IV PRN ×2 (15:23→16:07)
[2021-12-25 15:27] LABS: Glucose,Whole Blood 65 mg/dL (75-99)
[2021-12-25 15:28] LABS: Amphetamine Screen,Urine Not Detected (NotDetected); Barbiturate Screen,Urine Detected (NotDetected); Benzodiazepines Screen,Urine Not Detected (NotDetected); Cocaine Screen,Urine Not Detected (NotDetected); Methadone Screen, Urine Not Detected (NotDetected); Opiate Screen,Urine Not Detected (NotDetected); Oxycodone Screen, Urine Not Detected (NotDetected); Phencyclidine Screen,Urine Not Detected (NotDetected); Tricyclic Antidepressant,Urine Not Detected (NotDetected); Urn Cannabinoid Scrn Not Detected (NotDetected)
[2021-12-25] MEDS ORDERED: DEXTROSE 5%-0.45% NACL 1,000 ML IV SCH ×2 (15:30→16:30)
[2021-12-25 16:06] LABS: Glucose,Whole Blood 70 mg/dL (75-99)
[2021-12-25] MEDS ORDERED: ACETAMINOPHEN TAB 325 MG TAB PO PRN (16:07)
--- NOTE | 2021-12-25 16:32 | P.HPIM ---
History of Present Illness H&P Date: 12/22/21 This 66-year-old female with a past medical history of diabetes mellitus, Crohn's disease and psoriasis presents to the emergency department with altered mental status that began last night at 8:00 PM. Has been in room states they were watching TV around 8:00 last night when patient began having trouble working the TV remote, which patient has never had trouble doing in her past. states he suggested they just go to bed and thought she was just tired at the time. Patient was not having any difficulty speaking or walking at this time and has been thought she was just tired. states patient slept through the night and woke up this morning around 5 AM taught her cat out before going back to bed for another 1-2 hours. states since waking up this morning his has had increased weakness, increase tiredness-falling asleep while just sitting in her chair, and difficulty speaking. denies any one-sided weakness. states that patient was recently taken off of her insulin due to her blood sugars dropping, however he states last night was 97 when she took her sugars, he is unsure what time it was that she took it and states he believes it was a couple hours prior to when her altered mental status began. denies any recent falls, patient complaining of any headache, lightheadedness, dizziness, chest pain, shortness of breath, abdominal pain, change in bowel or bladder. denies patient having any strokes in her past. In the emergency room the patient was found to be hypoglycemic at 38 she received an amp of D50. Repeat blood sugar at 70. Patient stated that she lost 50 pounds over the course of the 3 months. Patient stated that she lost weight due to her Crohn's disease. She just finished her prednisone taper for Crohn's disease. She denies any chest pain or shortness of breath. Patient denied any headache or visual changes patient denies any weakness numbness or tingling. Patient's symptoms improved. She is being admitted for observation to monitor her blood sugar overnight. Review of Systems All 14 review of systems evaluated and all negative except for above. Past Medical History Past Medical History: Diabetes Mellitus, Neurologic Disorder, Skin Disorder Additional Past Medical History / Comment(s): Type 2 diabetes, Crohn's disease, psoriasis, tremors(possibly Parkinsons), and overactive bladder. 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 History of Any Multi-Drug Resistant Organisms: None Reported Past Surgical History: Adenoidectomy, Appendectomy, Cholecystectomy, Orthopedic Surgery, Tonsillectomy Additional Past Surgical History / Comment(s): Carpal tunnel surgery. Colonoscopy with upper endoscopy 2020. 3 vaginal deliveries. Past Psychological History: Anxiety, Depression Smoking Status: Never smoker Past Alcohol Use History: Rare Past Drug Use History: None Reported - Past Family History Mother Family Medical History: Diabetes Mellitus Additional Family Medical History / Comment(s): Maternal aunt had breast cancer. Father Family Medical History: Cancer Additional Family Medical History / Comment(s): Lymphoma Medications and Allergies Home Medications Medication Instructions Recorded Confirmed Type Pioglitazone [Actos] 30 mg PO DAILY 03/25/20 12/25/21 History Primidone [Mysoline] 75 mg PO BID 03/25/20 12/25/21 History Propranolol [Inderal] 10 mg PO BID 03/25/20 12/25/21 History glipiZIDE [Glucotrol] 20 mg PO AC-BID 03/25/20 12/25/21 History Mesalamine 1,600 mg PO TID 10/20/21 12/25/21 History Baclofen [Lioresal] 10 mg PO BID 12/25/21 12/25/21 History Carbidopa-Levodopa 25-100 mg 1 tab PO TID 12/25/21 12/25/21 History [Sinemet 25-100] Folic Acid 0.4 mg PO SUMOTUWETHSA 12/25/21 12/25/21 History Oxybutynin Chloride [Ditropan] 5 mg PO BID 12/25/21 12/25/21 History PARoxetine [Paxil] 20 mg PO HS 12/25/21 12/25/21 History Risankizumab-Rzaa [Skyrizi] 75 mg SQ Q90D 12/25/21 12/25/21 History predniSONE 40 mg PO DAILY 12/25/21 12/25/21 History rOPINIRole HCL [Requip] 1 mg PO TID-W/MEALS 12/25/21 12/25/21 History Allergies Allergy/AdvReac Type Severity Reaction Status Date / Time amoxicillin Allergy Rash/Hives Verified 12/25/21 13:08 clindamycin Allergy Unknown Verified 12/25/21 13:08 Physical Exam Vitals: Vital Signs Temp Pulse Resp BP Pulse Ox 12/25/21 14:26 66 16 158/73 99 12/25/21 11:53 97.5 F L 66 16 158/73 96 12/25/21 10:44 98.8 F 66 20 106/76 98 Intake and Output 12/25/21 12/25/21 12/25/21 06:59 14:59 22:59 Other: Weight 70.307 kg General: non toxic, no distress, appears at stated age Derm: warm, dry Head: atraumatic, normocephalic, symmetric Eyes: EOMI, no lid lag, anicteric sclera Mouth: no lip lesion, mucus membranes moist Cardiovascular: S1S2 reg, no murmur, positive posterior tibial pulse bilateral, Lungs: CTA bilateral, no rhonchi, no rales , no accessory muscle use Abdominal: soft, nontender to palpation, no guarding, no appreciable organomegaly Ext: no gross muscle atrophy, no edema, no contractures Neuro: CN II-XI grossly intact, no focal neuro deficits Psych: Alert, oriented, appropriate affect Results CBC & Chem 7: 12/25/21 12:10 12/25/21 12:10 Labs: Abnormal Lab Results - Last 24 Hours (Table) 12/25/21 12/25/21 12/25/21 Range/Units 12:10 12:10 12:10 MCV 105.0 H (80.0-100.0) fL MCH 35.7 H (25.0-35.0) pg Plt Count 127 L (150-450) k/uL APTT 19.4 L (22.0-30.0) sec BUN 26 H (7-17) mg/dL Glucose 38 L* (74-99) mg/dL POC Glucose (mg/dL) (75-99) mg/dL Urine Glucose (UA) (Negative) Ur Barbiturates Screen (NotDetected) 12/25/21 12/25/21 12/25/21 Range/Units 13:22 14:25 14:53 MCV (80.0-100.0) fL MCH (25.0-35.0) pg Plt Count (150-450) k/uL APTT (22.0-30.0) sec BUN (7-17) mg/dL Glucose (74-99) mg/dL POC Glucose (mg/dL) 127 H 68 L (75-99) mg/dL Urine Glucose (UA) Trace H (Negative) Ur Barbiturates Screen Detected H (NotDetected) 12/25/21 12/25/21 Range/Units 15:25 16:05 MCV (80.0-100.0) fL MCH (25.0-35.0) pg Plt Count (150-450) k/uL APTT (22.0-30.0) sec BUN (7-17) mg/dL Glucose (74-99) mg/dL POC Glucose (mg/dL) 65 L 70 L (75-99) mg/dL Urine Glucose (UA) (Negative) Ur Barbiturates Screen (NotDetected) Assessment and Plan Assessment: Assessment and plan: #Severe Hypoglycemia with altered mental status -Mental status improved after correction of hypoglycemia -CT of the head in the emergency room unremarkable -Secondary to sulfonylurea and Actos. Both medications to be held on discharge -Patient lost 50 pounds over the past 3 months -Accu-Chek every 6 hours and at bedtime -D5 half-normal saline at 40 mL per hour -A1c #Crohn's disease -Controlled -Finished a prednisone taper -Resume mesalamine #Hypertension -Resume all medications #Psoriasis -She is on Skyrizi every 75 mg subcutaneously every 90 days #Parkinson's disease -Resume carbidopa- levodopa #Depression -Resume Paxil #DVT prophylaxis with subcutaneous Lovenox #Full code
[2021-12-25 17:28] LABS: Glucose,Whole Blood 92 mg/dL (75-99)
[2021-12-25] MEDS: ENOXAPARIN 40 MG/0.4 ML SYRINGE SQ SCH (18:07)
[2021-12-25] MEDS ORDERED: PARoxetine 20 MG TAB PO SCH (21:00)
[2021-12-25 22:22] LABS: Glucose,Whole Blood 75 mg/dL (75-99)
[2021-12-25] MEDS: BACLOFEN 10 MG TAB PO SCH (22:28)
[2021-12-25] MEDS: PRIMIDONE 50 MG TAB PO SCH (22:28)
[2021-12-25] MEDS: OXYBUTYNIN CHLORIDE 5 MG TAB PO SCH (22:29)
[2021-12-25] MEDS: CARBIDOPA-LEVODOPA 25-100 MG 1 EACH TAB PO SCH (22:29)
[2021-12-25] MEDS: PROPRANOLOL 10 MG TAB PO SCH (22:31)
[2021-12-25] MEDS: BALSALAZIDE DISODIUM 750 MG CAPSULE PO SCH (22:32)
[2021-12-26 01:41] VITALS: RESP 16
[2021-12-26 03:30] LABS: Glucose,Whole Blood 93 mg/dL (75-99)
[2021-12-26 06:30] LABS: Glucose,Whole Blood 105 mg/dL (75-99)
[2021-12-26] MEDS: CARBIDOPA-LEVODOPA 25-100 MG 1 EACH TAB PO SCH (08:33)
[2021-12-26] MEDS: OXYBUTYNIN CHLORIDE 5 MG TAB PO SCH (08:34)
[2021-12-26] MEDS: PRIMIDONE 50 MG TAB PO SCH (08:34)
[2021-12-26] MEDS: ENOXAPARIN 40 MG/0.4 ML SYRINGE SQ SCH (08:34)
[2021-12-26] MEDS: BACLOFEN 10 MG TAB PO SCH (08:34)
[2021-12-26] MEDS: PROPRANOLOL 10 MG TAB PO SCH (08:36)
[2021-12-26] MEDS: BALSALAZIDE DISODIUM 750 MG CAPSULE PO SCH (08:38)
[2021-12-26 08:49] VITALS: BP 110/48; PULSE 79; TEMP 98.3
[2021-12-26] MEDS ORDERED: FOLIC ACID 1 MG TAB PO SCH (09:00)
[2021-12-26 09:18] LABS: Basophils # (A) 0.1 k/uL (0-0.2); Basophils % (A) 1 %; Eosinophils # (A) 0.1 k/uL (0-0.7); Eosinophils % (A) 1 %; HCT 45.1 % (34.0-46.0); HGB 14.5 gm/dL (11.4-16.0); Lymphocytes # (A) 1.8 k/uL (1.0-4.8); Lymphocytes % (A) 22 %; MCHC 32.1 g/dL (31.0-37.0); MCV 109.1 fL (80.0-100.0); Macrocytosis Moderate; Mean Platelet Volume 9.4; Monocytes # (A) 0.5 k/uL (0-1.0); Monocytes % (A) 6 %; Neutrophils # (A) 5.6 k/uL (1.3-7.7); Neutrophils % (A) 69 %; Platelet Count 227 k/uL (150-450); RBC 4.13 m/uL (3.80-5.40); RDW 12.6 % (11.5-15.5); WBC 8.1 k/uL (3.8-10.6)
[2021-12-26 09:26] LABS: ALT 17 U/L (4-34); AST 24 U/L (14-36); African American GFR (CKD) >90 (>60 ml/min/1.73 sqM); Albumin 3.6 g/dL (3.5-5.0); Alkaline Phosphatase 48 U/L (38-126); Anion Gap 7 mmol/L; Blood Urea Nitrogen 25 mg/dL (7-17); Calcium 8.8 mg/dL (8.4-10.2); Carbon Dioxide 27 mmol/L (22-30); Chloride 102 mmol/L (98-107); Glucose 199 mg/dL (74-99); Magnesium 1.9 mg/dL (1.6-2.3); Non-African American GFR(CKD) 80 (>60 ml/min/1.73 sqM); Potassium 4.2 mmol/L (3.5-5.1); Sodium 136 mmol/L (137-145); Total Bilirubin 0.5 mg/dL (0.2-1.3); Total Protein 6.5 g/dL (6.3-8.2)
[2021-12-26 09:40] VITALS: BMI 26.6
[2021-12-26 11:33] LABS: Glucose,Whole Blood 174 mg/dL (75-99)
--- NOTE | 2021-12-26 14:27 | P.DS ---
Providers Date of admission: 12/25/21 15:23 Expected date of discharge: 12/26/21 Attending physician: Arjun Allen MD Primary care physician: Miryam Melo [facility] Course: History of Present Illness H&P Date: 12/22/21 This 66-year-old female with a past medical history of diabetes mellitus, Crohn's disease and psoriasis presents to the emergency department with altered mental status that began last night at 8:00 PM. Has been in room states they were watching TV around 8:00 last night when patient began having trouble working the TV remote, which patient has never had trouble doing in her past. states he suggested they just go to bed and thought she was just tired at the time. Patient was not having any difficulty speaking or walking at this time and has been thought she was just tired. states patient slept through the night and woke up this morning around 5 AM taught her cat out before going back to bed for another 1-2 hours. states since waking up this morning his has had increased weakness, increase tiredness-falling asleep while just sitting in her chair, and difficulty speaking. denies any one-sided weakness. states that patient was recently taken off of her insulin due to her blood sugars dropping, however he states last night was 97 when she took her sugars, he is unsure what time it was that she took it and s tates he believes it was a couple hours prior to when her altered mental status began. denies any recent falls, patient complaining of any headache, lightheadedness, dizziness, chest pain, shortness of breath, abdominal pain, change in bowel or bladder. denies patient having any strokes in her past. In the emergency room the patient was found to be hypoglycemic at 38 she received an amp of D50. Repeat blood sugar at 70. Patient stated that she lost 50 pounds over the course of the 3 months. Patient stated that she lost weight due to her Crohn's disease. She just finished her prednisone taper for Crohn's disease. She denies any chest pain or shortness of breath. Patient denied any headache or visual changes patient denies any weakness numbness or tingling. Patient's symptoms improved. She is being admitted for observation to monitor her blood sugar overnight. Physical examination on discharge: General: non toxic, no distress, appears at stated age Derm: warm, dry Head: atraumatic, normocephalic, symmetric Eyes: EOMI, no lid lag, anicteric sclera Mouth: no lip lesion, mucus membranes moist Cardiovascular: S1S2 reg, no murmur, positive posterior tibial pulse bilateral, Lungs: CTA bilateral, no rhonchi, no rales , no accessory muscle use Abdominal: soft, nontender to palpation, no guarding, no appreciable organomegaly Ext: no gross muscle atrophy, no edema, no contractures Neuro: CN II-XI grossly intact, no focal neuro deficits Psych: Alert, oriented, appropriate affect Hospital course undetected problem list: #Severe Hypoglycemia with altered mental status -Mental status improved after correction of hypoglycemia -CT of the head in the emergency room unremarkable -Secondary to sulfonylurea and Actos. Both medications to be held on discharge. Patient is to follow-up with PCP within one week for diabetes management. Both medication were discontinued and discharge. The patient to be off sulfonylureas and to be started on another hypoglycemic agent to be managed by her PCP. -Patient lost 50 pounds over the past 3 months -Accu-Chek every 6 hours and at bedtime -Status post D5 half-normal saline at 40 mL per hour -A1c 7.9 #Crohn's disease -Controlled -Finished a prednisone taper -Resume mesalamine #Hypertension -Resume all medications #Psoriasis -She is on Skyrizi every 75 mg subcutaneously every 90 days #Parkinson's disease -Resume carbidopa- levodopa #Depression -Resume Paxil Patient Condition at Discharge: Stable Plan - Discharge Summary Discharge Rx Participant: No New Discharge Prescriptions: Continue Propranolol [Inderal] 10 mg PO BID Primidone [Mysoline] 75 mg PO BID Folic Acid 0.4 mg PO SUMOTUWETHSA Oxybutynin Chloride [Ditropan] 5 mg PO BID Carbidopa-Levodopa 25-100 mg [Sinemet 25-100 mg] 1 tab PO TID Risankizumab-Rzaa [Skyrizi] 75 mg SQ Q90D Baclofen [Lioresal] 10 mg PO BID Mesalamine 1,600 mg PO TID rOPINIRole HCL [Requip] 1 mg PO TID-W/MEALS PARoxetine [Paxil] 20 mg PO HS Discontinued Pioglitazone [Actos] 30 mg PO DAILY glipiZIDE [Glucotrol] 20 mg PO AC-BID predniSONE 40 mg PO DAILY Discharge Medication List Primidone [Mysoline] 75 mg PO BID 03/25/20 [History] Propranolol [Inderal] 10 mg PO BID 03/25/20 [History] Mesalamine 1,600 mg PO TID 10/20/21 [History] Baclofen [Lioresal] 10 mg PO BID 12/25/21 [History] Carbidopa-Levodopa 25-100 mg [Sinemet 25-100 mg] 1 tab PO TID 12/25/21 [History] Folic Acid 0.4 mg PO SUMOTUWETHSA 12/25/21 [History] Oxybutynin Chloride [Ditropan] 5 mg PO BID 12/25/21 [History] PARoxetine [Paxil] 20 mg PO HS 12/25/21 [History] Risankizumab-Rzaa [Skyrizi] 75 mg SQ Q90D 12/25/21 [History] rOPINIRole HCL [Requip] 1 mg PO TID-W/MEALS 12/25/21 [History] Follow up Appointment(s)/Referral(s): Antonio Witt MD [Primary Care Provider] - 1-2 days (call tuesday for appt) Patient Instructions/Handouts: Hypoglycemia in a Person with Diabetes (DC) Discharge Disposition: HOME SELF-CARE
== END 2021-12-26 12:37 | disposition home or self-care (01) ==
LOC: EC 10:42 → 3SCARD 15:23
PROVIDERS: ADMIT Hospitalist; ATTEND Hospitalist
DX: E11.649 Type 2 diabetes mellitus with hypoglycemia without coma (principal); K50.90 Crohn's disease, unspecified, without complications; L40.9 Psoriasis, unspecified; I11.9 Hypertensive heart disease without heart failure; G20 Parkinson's disease; R09.89 Other specified symptoms and signs involving the circulatory and respiratory systems; N32.81 Overactive bladder; F32.A Depression, unspecified; F41.9 Anxiety disorder, unspecified; Z79.84 Long term (current) use of oral hypoglycemic drugs; Z79.52 Long term (current) use of systemic steroids; Z79.899 Other long term (current) drug therapy; Z88.0 Allergy status to penicillin; Z88.1 Allergy status to other antibiotic agents; Z90.49 Acquired absence of other specified parts of digestive tract; Z98.890 Other specified postprocedural states; Z83.3 Family history of diabetes mellitus; Z80.3 Family history of malignant neoplasm of breast; Z80.7 Family history of other malignant neoplasms of lymphoid, hematopoietic and related tissues
CPT/HCPCS: 96372 ×2; 96374; 99285; 36415; 94760; 80053 ×2; 82140; 83735; 84484; 85025 ×2; 85610; 85730; 81003; 87040; 80306; 83036; 71046; 70450; G0378 ×2; G0480; J1650 ×2; 80320

== ENCOUNTER → 2023-12-08 | Outpatient (CLI) | payer MEDICARE ==
--- NOTE | 2023-12-09 19:23 | MM ---
Reason for Exam: Screening (asymptomatic). Last mammogram was performed 2 year(s) and 1 month(s) ago. Patient History: Menarche at age 10. First Full-Term at age 19. Postmenopausal. Patient has history of breast feeding. Maternal cousin had breast cancer. Paternal cousin had breast cancer. Maternal aunt had breast cancer. Risk Values: Tina 5 year model risk: 1.5%. NCI Lifetime model risk: 4.5%. Prior Study Comparison: 09/16/2016 Bilateral Screening Mammogram, [facility]. 03/15/2018 Bilateral Screening Mammogram, [facility]. 03/25/2020 Bilateral Screening Mammogram, [facility]. 10/20/2021 Bilateral Screening Mammogram, [facility]. Tissue Density: The breast tissue is heterogeneously dense. This may lower the sensitivity of mammography. Findings: Analyzed By CAD. There is no suspicious group of microcalcifications or new suspicious mass in either breast. Overall Assessment: Negative, BI-RAD 1 Management: Screening Mammogram of both breasts in 1 year. . Patient should continue monthly self-breast exams. A clinical breast exam by your physician is recommended on an annual basis. This exam should not preclude additional follow-up of suspicious palpable abnormalities. Note on Tina scores and lifetime risk: 1. A Tina score greater than 3% is considered moderate risk. If this is the case, consider specialist referral to assess eligibility for a risk reducing agent. 2. If overall lifetime risk for the development of breast cancer is 20% or higher, the patient may qualify for future screening with alternating mammogram and breast MRI. Electronically signed and approved by: Jagruti Díaz M.D. Radiologist
== END | disposition home or self-care (01) ==
LOC: RADMAMWWP 09:15
PROVIDERS: ATTEND Family Medicine
DX: Z12.31 Encounter for screening mammogram for malignant neoplasm of breast (principal); Z80.3 Family history of malignant neoplasm of breast; Z78.0 Asymptomatic menopausal state
CPT/HCPCS: 77063; 77067

== ENCOUNTER → 2025-05-06 | Outpatient (CLI) | payer MEDICARE ==
--- NOTE | 2025-05-06 14:06 | XR ---
EXAMINATION TYPE: XR hand complete RT DATE OF EXAM: 05/06/2025 1:14 PM COMPARISON: None. CLINICAL INDICATION: Female, 69 years old with history of M79.461, pain TECHNIQUE: 3 view(s) obtained. FINDINGS: No acute displaced fractures evident. There is narrowing of the metacarpal phalangeal joint spaces of the thumb index and middle fingers. Mild diffuse narrowing through the proximal distal interphalange al joint spaces is present. Soft tissue swelling is over the dorsum of the hand metacarpal phalangeal joint level. Follow up exams can be performed 7-10 days from acute trauma for continued pain IMPRESSION: 1. No acute osseous abnormality right hand. 2. Soft tissue swelling metacarpal phalangeal joint space. 3. Degenerative joint changes. [facility], Workstation: [facility], 05/06/2025 2:03 PM
== END | disposition home or self-care (01) ==
LOC: RADXRMAIN 12:46
PROVIDERS: ATTEND Family Medicine
DX: M19.041 Primary osteoarthritis, right hand (principal)